=== PATIENT | male | born 1995 | race Hispanic/Latino ===

== ENCOUNTER 2018-03-11 15:00 | Emergency (ER) | payer MEDICAID ==
[2018-03-11 15:05] VITALS: RESP 20; TEMP 97.9; O2SAT 99
--- NOTE | 2018-03-11 15:20 | C.PDOC ---
History Of Present Illness 23 y/o male presents to the ER complaining of left knee pain which has been present since yesterday. Patient states that he was playing basketball when another player landed on his knee, he notes that he twisted his knee inwards. Denies having weakness and numbness. Able to ambulate. Time Seen by Provider: 03/11/18 15:09 Chief Complaint (Nursing): Lower Extremity Problem/Injury History Per: Patient History/Exam Limitations: no limitations Onset/Duration Of Symptoms: Days Current Symptoms Are (Timing): Still Present Past Medical History Reviewed: Historical Data, Nursing Documentation, Vital Signs Vital Signs: Last Vital Signs Temp 97.9 F 03/11/18 16:15 Pulse 68 03/11/18 16:15 Resp 20 03/11/18 16:15 BP 120/69 03/11/18 16:15 Pulse Ox 99 03/11/18 16:49 - Medical History PMH: Asthma Surgical History: No Surg Hx Family History: States: No Known Family Hx - Social History Hx Tobacco Use: Yes Hx Alcohol Use: Yes Hx Substance Use: No - Immunization History Hx Tetanus Toxoid Vaccination: No Hx Influenza Vaccination: No Hx Pneumococcal Vaccination: No Review Of Systems Except As Marked, All Systems Reviewed And Found Negative. Physical Exam - Physical Exam Appears: Non-toxic, No Acute Distress Skin: Normal Color, Warm, Dry Head: Atraumatic, Normacephalic Eye(s): bilateral: Normal Inspection, EOMI Nose: Normal Oral Mucosa: Moist Neck: Supple Chest: Symmetrical Respiratory: No Accessory Muscle Use Extremity: Normal ROM, Tenderness (tenderness to medial aspect of left knee, tenderness to lateral aspect of left knee), No Calf Tenderness, Capillary Refill (<2 sec), No Deformity, No Swelling Pulses: Left Dorsalis Pedis: Normal, Right Dorsalis Pedis: Normal Neurological/Psych: Oriented x3, Normal Speech ED Course And Treatment O2 Sat by Pulse Oximetry: 99 (RA) Pulse Ox Interpretation: Normal - Other Rad X-Ray- Left Knee X-Ray: Viewed By Me, Read By Radiologist Interpretation: Date of service: 03/11/2018. PROCEDURE: Left Knee Radiographs. HISTORY: Pain. COMPARISON: None. FINDINGS: BONES: Normal. No fracture. JOINTS: Normal. No osteoarthritis. JOINT EFFUSION: Suspect tiny suprapatellar joint effusion. OTHER FINDINGS: None. IMPRESSION: No acute fractures. Suspect tiny suprapatellar joint effusion. X-Ray- Left Ankle X-Ray: Viewed By Me, Read By Radiologist Interpretation: Date of service: 03/11/2018. PROCEDURE: Left Ankle Radiographs. HISTORY: Trauma. COMPARISON: None. FINDINGS: BONES: Normal. No fracture. JOINTS: Normal. No osteoarthritis. Ankle mortise maintained. Talar dome intact. SOFT TISSUES: There appears to be some minimal soft tissue swelling overlying the lateral malleolus that. OTHER FINDINGS: None. IMPRESSION: No evidence of acute displaced fracture nor dislocation. Minimal soft tissue swelling overlying the lateral malleolus. Progress Note: Patient offered pain medications, however he declined. X-Ray Left Knee and X-Ray- Left ankle ordered and reviewed. Aircast and savanna wrap has been applied by triage technician. Patient has been provided crutches. Patient has been discharged and instructed to follow up with bone doctor. Disposition - Disposition Referrals: Lisandro Lockwood III, MD [Staff Provider] - Disposition: HOME/ ROUTINE Disposition Time: 15:17 Condition: STABLE Additional Instructions: Follow up with the bone doctor in 1-2 days. Return to ER if symptoms persist or worsen. Instructions: Ankle Sprain (DC) Forms: [employer] (Croatian) - Clinical Impression Clinical Impression: Knee sprain, Ankle sprain - PA / [employer]ST[employer] PRODUCER / Resident Statement MD/DO has reviewed & agrees with the documentation as recorded. - Scribe Statement The provider has reviewed the documentation as recorded by the Benji Garcia Provider Attestation All medical record entries made by the Scribe were at my direction and personally dictated by me. I have reviewed the chart and agree that the record accurately reflects my personal performance of the history, physical exam, medical decision making, and the department course for this patient. I have also personally directed, reviewed, and agree with the discharge instructions and disposition.
--- NOTE | 2018-03-11 16:03 | RAD ---
Date of service: 03/11/2018 PROCEDURE: Left Ankle Radiographs. HISTORY: Trauma COMPARISON: None FINDINGS: BONES: Normal. No fracture. JOINTS: Normal. No osteoarthritis. Ankle mortise maintained. Talar dome intact SOFT TISSUES: There appears to be some minimal soft tissue swelling overlying the lateral malleolus that OTHER FINDINGS: None. IMPRESSION: No evidence of acute displaced fracture nor dislocation. Minimal soft tissue swelling overlying the lateral malleolus.
--- NOTE | 2018-03-11 16:05 | RAD ---
Date of service: 03/11/2018 PROCEDURE: Left Knee Radiographs. HISTORY: Pain. COMPARISON: None. FINDINGS: BONES: Normal. No fracture. JOINTS: Normal. No osteoarthritis. JOINT EFFUSION: Suspect tiny suprapatellar joint effusion. OTHER FINDINGS: None. IMPRESSION: No acute fractures. Suspect tiny suprapatellar joint effusion.
[2018-03-11 16:23] VITALS: BP 120/69; PULSE 68
== END 2018-03-11 16:16 | disposition home or self-care (01) ==
LOC: C.ER 15:00
DX: S83.92XA Sprain of unspecified site of left knee, initial encounter (principal); S93.402A Sprain of unspecified ligament of left ankle, initial encounter; X50.9XXA Other and unspecified overexertion or strenuous movements or postures, initial encounter; Y93.67 Activity, basketball